=== PATIENT | female | born 1955 | race Caucasian/White ===

== ENCOUNTER 2016-09-26 11:25 | Emergency (ER) | payer BC ==
[~2016-09-26] VITALS: Ht 165.1 cm; Wt 60.3 kg
[~2016-09-26 11:25] MED LIST: METH500T; OXYC-133
[2016-09-26 11:41] VITALS: BP_SYST 146
[2016-09-26 13:15] VITALS: BP_SYST 135
== END 2016-09-26 13:15 | disposition home or self-care (01) ==
LOC: SED 11:25
DX: S02.2XXA Fracture of nasal bones, initial encounter for closed fracture (principal); M54.2 Cervicalgia; M25.561 Pain in right knee; Z88.0 Allergy status to penicillin; Z88.1 Allergy status to other antibiotic agents; Z91.041 Radiographic dye allergy status; W01.198A Fall on same level from slipping, tripping and stumbling with subsequent striking against other object, initial encounter; Y93.89 Activity, other specified; Y92.481 Parking lot as the place of occurrence of the external cause; Y99.8 Other external cause status
CPT/HCPCS: 70450-TC; 70486-TC; 72125-TC; 73564; 99284

== ENCOUNTER 2018-06-09 09:29 | Outpatient (CLI) | payer BC | END 2018-06-09 19:09 | disposition home or self-care (01) | LOC: SMA 09:29 | PROVIDERS: ATTEND Physician Assistant Medical | DX: N63.11 Unspecified lump in the right breast, upper outer quadrant (principal); Z98.82 Breast implant status | CPT/HCPCS: 77066 ==